=== PATIENT | male | born 1940 | race Caucasian/White ===

== ENCOUNTER 2016-12-03 05:06 | Observation (INO) | payer OTHER ==
[2016-12-03] VITALS (8 sets, daily range): BP systolic 146–183; BP diastolic 77–91; PULSE 82–100; RESP 15–18; TEMP 97.7–98.4; O2SAT 96–97
[~2016-12-03] VITALS: Ht 180.3 cm; Wt 108.0 kg
[~2016-12-03 05:06] MED LIST: CEFU1TAB43 PO; DICL50 PO; HYDR-2768 PO; HYDR-3533 PO; LANSO15 PO/TUBE; LISI-360 PO; LOTR10CA PO; METHO500 PO
--- NOTE | 2016-12-03 05:20 | PD ---
HPI Chief Complaint: chest pain Time Seen by Provider: 05:16 Travel History International Travel<30 days: No Contact w/Intl Traveler<30days: No Traveled to known affect area: No History of Present Illness HPI 76-year-old male presents to the emergency department by private transportation the care of her spouse for evaluation of chest pain. Patient states just prior to arrival to the emergency department he awakened and noticed left-sided chest discomfort and some mild diaphoresis of the forehead. No shortness of breath no nausea no vomiting no referred neck shoulder or back or arm pain. No abdominal pain. Patient has history of hypertension but denies personal history of CAD, dyslipidemia, diabetes, or tobaccoism. Patient states discomfort at home was 8/10 in intensity currently discomfort is 0/10 intensity. Patient recently traveled to [place] by car 3 weeks ago but denies any pleuritic chest pain shortness of breath or lower extremity pain or swelling. Patient does not report any fever chills cough congestion or other recent febrile or respiratory illness. Patient does not report any abdominal pain. Patient is unable to identify exacerbating or alleviating factors. PFSH Past Medical History Arthritis: Yes GERD: Yes Hypertension: Yes Social History Alcohol Use: Yes ("whole bunch") Tobacco Use: No (quit 40 years ago) Substance Use: No Allergies-Medications (Allergen,Severity, Reaction): Coded Allergies: No Known Allergies (Unverified , 08/10/15) Reported Meds & Prescriptions Reported Meds & Active Scripts Active Reported Hydrochlorothiazide 25 Mg Tab 25 Mg PO DAILY Lisinopril 10 Mg Tab 10 Mg PO DAILY Prevacid (Lansoprazole) 30 Mg Capdr 30 Mg PO DAILY Amlodipine (Amlodipine Besylate) 10 Mg Tab 10 Mg PO DAILY Physical Exam Narrative GENERAL: Well-developed well-nourished male distress no respiratory distress SKIN: Warm and dry. HEAD: Normocephalic. EYES: No scleral icterus. No injection or drainage. NECK: Supple, trachea midline. No JVD or lymphadenopathy. CARDIOVASCULAR: Regular rate and rhythm without murmurs, gallops, or rubs. RESPIRATORY: Breath sounds equal bilaterally. No accessory muscle use. GASTROINTESTINAL: Abdomen soft, non-tender, nondistended. MUSCULOSKELETAL: No cyanosis, or edema. No lower leg edema and tenderness Homans sign or cording. Bilateral radial and dorsalis pedis pulses 2+ to palpation. BACK: Nontender without obvious deformity. No CVA tenderness. Data Data Last Documented VS Vital Signs Date Time Temp Pulse Resp B/P Pulse Ox O2 Delivery O2 Flow Rate FiO2 12/03/16 05:34 85 16 146/77 97 Room Air 12/03/16 05:16 98.4 Orders Electrocardiogram (12/03/16 05:16) Basic Metabolic Panel (Bmp) (12/03/16 05:16) B-Type Natriuretic Peptide (12/03/16 05:16) Ckmb (Isoenzyme) Profile (12/03/16 05:16) Complete Blood Count With Diff (12/03/16 05:16) Magnesium (Mg) (12/03/16 05:16) Prothrombin Time / Inr (Pt) (12/03/16 05:16) Act Partial Throm Time (Ptt) (12/03/16 05:16) Troponin I (12/03/16 05:16) Chest, Single Ap (12/03/16 05:16) Ecg Monitoring (12/03/16 05:16) Bilateral Bp Monitoring (12/03/16 05:16) Iv Access Insert/Monitor (12/03/16 05:16) Oximetry (12/03/16 05:16) Oxygen Administration (12/03/16 05:16) Aspirin Chew (Aspirin Chew) (12/03/16 05:30) Sodium Chloride 0.9% Flush (Ns Flush) (12/03/16 05:30) Place In Observation (12/03/16 06:22) Activity Bed Rest With Brp (12/03/16 06:22) Vital Signs (Adult) Q4H (12/03/16 06:22) Cardiac Rhythm .As Directed (12/03/16 06:22) Notify Dr: Other .PRN (12/03/16 06:22) Notify Dr. Parameters (12/03/16 06:22) Resp Oxygen Nasal Cannula (12/03/16 ) Ckmb (Isoenzyme) Profile (12/03/16 08:30) Ckmb (Isoenzyme) Profile (12/03/16 11:30) Troponin I (12/03/16 08:30) Troponin I (12/03/16 11:30) Electrocardiogram (12/03/16 08:30) Electrocardiogram (12/03/16 11:30) ^ Obtain (12/03/16 06:22) Sodium Chloride 0.9% Flush (Ns Flush) (12/03/16 06:30) Sodium Chloride 0.9% Flush (Ns Flush) (12/03/16 09:00) Steeler / Telemetry RACHEL.Q8H (12/03/16 06:22) Labs Laboratory Tests Test 12/03/16 05:10 White Blood Count 6.2 TH/MM3 Red Blood Count 4.05 MIL/MM3 Hemoglobin 13.0 GM/DL Hematocrit 38.3 % Mean Corpuscular Volume 94.5 FL Mean Corpuscular Hemoglobin 32.1 PG Mean Corpuscular Hemoglobin 34.0 % Concent Red Cell Distribution Width 12.3 % Platelet Count 219 TH/MM3 Mean Platelet Volume 7.8 FL Neutrophils (%) (Auto) 47.4 % Lymphocytes (%) (Auto) 33.5 % Monocytes (%) (Auto) 8.7 % Eosinophils (%) (Auto) 9.5 % Basophils (%) (Auto) 0.9 % Neutrophils # (Auto) 2.9 TH/MM3 Lymphocytes # (Auto) 2.1 TH/MM3 Monocytes # (Auto) 0.5 TH/MM3 Eosinophils # (Auto) 0.6 TH/MM3 Basophils # (Auto) 0.1 TH/MM3 CBC Comment DIFF FINAL Differential Comment Prothrombin Time 10.3 SEC Prothromb Time International 0.9 RATIO Ratio Activated Partial 26.8 SEC Thromboplast Time Sodium Level 139 MEQ/L Potassium Level 3.9 MEQ/L Chloride Level 103 MEQ/L Carbon Dioxide Level 28.7 MEQ/L Anion Gap 7 MEQ/L Blood Urea Nitrogen 30 MG/DL Creatinine 1.70 MG/DL Estimat Glomerular Filtration 39 ML/MIN Rate Random Glucose 92 MG/DL Calcium Level 8.9 MG/DL Magnesium Level 1.5 MG/DL Total Creatine Kinase 80 U/L Troponin I LESS THAN 0.02 NG/ML B-Type Natriuretic Peptide 106 PG/ML MDM Medical Decision Making Medical Screen Exam Complete: Yes Emergency Medical Condition: Yes Medical Record Reviewed: Yes Interpretation(s) EKG: Normal sinus rhythm no acute ST elevation or injury pattern change noted Troponin I less than 0.02, not elevated; BNP 106 minimally elevated; CK total 80 , not elevated Last Impressions Chest X-Ray 12/03/16 0516 Signed Impressions: Service Date/Time: November 05:27 - CONCLUSION: Bibasilar subsegmental atelectasis. Pradip Lang MD CBC & BMP Diagram 12/03/16 05:10 Vital Signs Date Time Temp Pulse Resp B/P Pulse Ox O2 Delivery O2 Flow Rate FiO2 12/03/16 05:34 85 16 146/77 97 Room Air 12/03/16 05:22 100 16 183/86 96 Room Air 12/03/16 05:22 100 16 96 Room Air 12/03/16 05:16 98.4 87 16 183/86 Differential Diagnosis Chest pain, ACS, DC, musculoskeletal pain, PE, aortic dissection Narrative Course Patient placed on cardiac technologist IV access obtained specimens collected and sent for resulting patient administered aspirin; upon arrival and currently patient is 0/10 intensity for discomfort; EKG performed reveals no acute ST elevation or injury pattern change or ectopy Patient resting comfortably waiting for lab results Critical enzymes are found to be in normal range Patient is aware that plan is to admit for chest pain center protocol as an observation stay for serial cardiac enzymes and EKGs and possible stress test. Patient is agreeable to observation admission. Patient's case discussed with Dr Gonzales Physician Communication Physician Communication discussed with Dr gonzales Diagnosis Primary Impression: Chest pain Qualified Code: R07.2 - Precordial pain Admitting Information Admitting Physician Requests: Observation Leeann Castro MD Dec 03, 2016 05:20
[2016-12-03 05:29] LABS: AUTOMATED NEUTROPHIL # 2.9 TH/MM3 (1.8-7.7); BASOPHIL # 0.1 TH/MM3 (0-0.2); BASOPHIL % 0.9 % (0.0-2.0); EOSINOPHIL # 0.6 TH/MM3 (0-0.4); EOSINOPHIL % 9.5 % (0.0-4.0); HEMATOCRIT 38.3 % (39.0-51.0); HEMO FLAGS DIFF FINAL; LYMPH % 33.5 % (9.0-44.0); LYMPHOCYTE # 2.1 TH/MM3 (1.0-4.8); MEAN CELL VOLUME 94.5 FL (80.0-100.0); MEAN CORPUSCULAR HEMOGLOBIN 32.1 PG (27.0-34.0); MONO % 8.7 % (0.0-8.0); NEUT % 47.4 % (16.0-70.0); PLATELET COUNT 219 TH/MM3 (150-450); RED BLOOD COUNT 4.05 MIL/MM3 (4.50-5.90); RED CELL DISTRIBUTION WIDTH 12.3 % (11.6-17.2); WHITE BLOOD COUNT 6.2 TH/MM3 (4.0-11.0)
[2016-12-03] MEDS ORDERED: ASPIRIN 81 MG CHEW TAB PO ONE (05:30)
[2016-12-03] MEDS ORDERED: SODIUM CHLORIDE 0.9% FLUSH 10 ML FLUSH IVF PRN ×2 (05:30→06:30)
--- NOTE | 2016-12-03 05:36 | RADRPT ---
EXAM DATE/TIME: 12/03/2016 05:27 [facility] COMPARISON: No previous studies available for comparison. INDICATIONS : Left sided chest pain for 24 hours MEDICAL HISTORY : None. SURGICAL HISTORY : None. ENCOUNTER: Initial ACUITY: 1 day PAIN SCORE: 5/10 LOCATION: Left chest FINDINGS: A single view of the chest demonstrates bibasilar subsegmental atelectasis. Heart mildly enlarged. Th e cardiomediastinal contours are unremarkable. Osseous structures are intact. CONCLUSION: Bibasilar subsegmental atelectasis. Pradip Lang MD on December 03, 2016 at 5:34 Board Certified Radiologist. This report was verified electronically.
[2016-12-03 05:37] LABS: CHLORIDE 103 MEQ/L (98-107); POTASSIUM 3.9 MEQ/L (3.5-5.1); SODIUM (NA) 139 MEQ/L (136-145)
[2016-12-03 05:40] LABS: ANION GAP 7 MEQ/L (5-15); BICARBONATE 28.7 MEQ/L (21.0-32.0); BLOOD UREA NITROGEN 30 MG/DL (7-18); MAGNESIUM 1.5 MG/DL (1.5-2.5)
[2016-12-03 05:41] LABS: APTT (PATIENT) 26.8 SEC (24.3-30.1); INTERNATIONAL NORMALIZED RATIO 0.9 RATIO; PROTHROMBIN TIME - PATIENT 10.3 SEC (9.8-11.6)
[2016-12-03 05:43] LABS: GLOMERULAR FILTRATION RATE 39 ML/MIN (>89)
[2016-12-03] MEDS ORDERED: LISI10TA3 PO (05:46)
[2016-12-03] MEDS ORDERED: PREV30CA11 PO (05:46)
[2016-12-03] MEDS ORDERED: HYDR25TA5 PO (05:46)
[2016-12-03] MEDS ORDERED: AMLO10TA2 PO (05:46)
[2016-12-03 05:51] LABS: CREATINE KINASE 80 U/L (39-308)
[2016-12-03] MEDS ORDERED: SODIUM CHLORIDE 0.9% FLUSH 10 ML FLUSH IV FLUSH PRN (06:30)
[2016-12-03 08:56] LABS: CREATINE KINASE 71 U/L (39-308)
[2016-12-03] MEDS ORDERED: SODIUM CHLORIDE 0.9% FLUSH 10 ML FLUSH IV FLUSH SCH (09:00)
[2016-12-03] MEDS ORDERED: SODIUM CHLORIDE 0.9% FLUSH 10 ML FLUSH SCH (09:00)
--- NOTE | 2016-12-03 09:21 | HHI.HP ---
[facility] Jenaro Gilbert Admission Diagnosis chest pain Diagnoses: (1) Chest pain Diagnosis: Principal (2) Hypertension Diagnosis: Secondary (3) GERD (gastroesophageal reflux disease) Diagnosis: Secondary Chief Complaint: Chest pain Travel History International Travel<30 Days: No Contact w/Intl Traveler <30 Da: No Traveled to Known Affected Are: No History of Present Illness Written by Checo Santoyo, acting as scribe for Dr. España on 12/03/16 at 10: 38. This note was transcribed by scribe Checo LUNA. I, Dr. Catrachita España personally performed the history, physical exam, and medical decision making; and confirmed the accuracy of the information in the transcribed note. Authenticated by Dr. Catrachita España on 12/03/16 at 10:38. 76 year-old male with known history of hypertension, gastroesophageal reflux, arthritis who presented to the hospital because of chest discomfort. Patient indicates that he is been experiencing intermittent chest discomfort over the last week. He states that is located on the left side of his chest without any radiation to neck, back, shoulder, arm. Indicates that the pain can happen any time despite if he is exerting himself or not. He denies any pain when he is lying down or sleeping. There has been no associated nausea, vomiting, shortness of breath, dyspnea. Since the pain has been going on over a week he decided to come to the hospital for evaluation. Patient was given aspirin emergency department. He indicates that he had a stress test done 12 years ago prior to moving to [place] and everything was normal then. Is recommended by ER physician that the patient be observed in the chest pain center for further evaluation and management. Review of Systems Constitutional: COMPLAINS OF: Diaphoretic episodes, DENIES: Fatigue, Fever, Weight gain, Weight loss, Chills, Dizziness, Change in appetite, Night Sweats Eyes: DENIES: Blurred vision, Diplopia, Eye inflammation, Eye pain, Vision loss , Double Vision Ears, nose, mouth, throat: DENIES: Hearing loss, Nasal discharge, Throat pain, Ear Pain, Running Nose, Sinus Pain Respiratory: DENIES: Apneas, Cough, Snoring, Wheezing, Hemoptysis, Sputum production, Shortness of breath Cardiovascular: COMPLAINS OF: Chest pain, Lower Extremity Edema, DENIES: Palpitations, Syncope, Dyspnea on Exertion, PND, Orthopnea, Claudication Gastrointestinal: DENIES: Abdominal pain, Black stools, Bloody stools, Constipation, Diarrhea, Nausea, Vomiting, Difficulty Swallowing, Anorexia Neurologic: DENIES: Abnormal gait, Headache, Localized weakness, Paresthesias, Seizures, Speech Problems, Tremor, Poor Balance Past Family Social History Past Medical History Hypertension Gastroesophageal reflux Past Surgical History Patient denies any previous surgeries Reported Medications Reported Meds & Active Scripts Active Reported Hydrochlorothiazide 25 Mg Tab 25 Mg PO DAILY Lisinopril 10 Mg Tab 10 Mg PO DAILY Prevacid (Lansoprazole) 30 Mg Capdr 30 Mg PO DAILY Amlodipine (Amlodipine Besylate) 10 Mg Tab 10 Mg PO DAILY Allergies: Coded Allergies: No Known Allergies (Unverified , 08/10/15) Family History Reviewed and significant for father from heart attack in his 70s. Social History Patient quit smoking 50 years ago, prior to that he smoked approximately one pack of cigarettes every 2 weeks for 10 years. He does drink alcohol approximately one shot of Cecilio Beam and a beer a day. Denies any illicit drug Physical Exam Vital Signs Vital Signs Date Time Temp Pulse Resp B/P Pulse Ox O2 Delivery O2 Flow Rate FiO2 12/03/16 08:53 97.7 84 15 163/91 97 12/03/16 07:10 97 Room Air 12/03/16 07:10 18 97 Room Air 12/03/16 07:10 82 18 163/86 97 Room Air 12/03/16 06:39 82 16 153/83 97 Room Air 12/03/16 06:28 97 21 12/03/16 05:34 85 16 146/77 97 Room Air 12/03/16 05:22 100 16 183/86 96 Room Air 12/03/16 05:22 100 16 96 Room Air 12/03/16 05:16 98.4 87 16 183/86 Physical Exam GENERAL: Well-developed, well-nourished, in no acute distress. alert and orientated HEENT: Head is normocephalic without any lesions or masses noted. Facial features are symmetric. Eyes: Pupils equal round reactive to light. Extraocular muscles are intact. Conjunctivae were clear. Oropharyngeal: Pharynx without any erythema edema. Tongue is midline without deviation. Buccal mucosa is moist without any masses or lesions NECK: Supple without any masses. Trachea midline no deviation. No JVD, no bruits are appreciated CARDIAC: Regular rhythm, regular rate. S1/S2 are heard. No murmurs gallops or rubs. LUNGS: Clear to auscultation bilaterally. No wheeze, rhonchi or rales. No use of accessory muscles on inspiration or expiration. ABDOMEN: Soft, nontender. Nondistended. Bowel sounds heard in all 4 quadrants. No organomegaly or masses. Negative rebound, negative guarding EXTREMITIES: No edema, pulses are equal bilaterally. No cyanosis or clubbing NEUROLOGY: Mood and affect appear appropriate. Cranial nerves II through XII grossly intact. Muscle strength 5/5 in upper and lower extremities bilaterally. Deep tendon reflexes are 2+ in upper and lower extremities bilaterally. Laboratory Laboratory Tests Test 12/03/16 12/03/16 05:10 08:00 White Blood Count 6.2 Red Blood Count 4.05 Hemoglobin 13.0 Hematocrit 38.3 Mean Corpuscular Volume 94.5 Mean Corpuscular Hemoglobin 32.1 Mean Corpuscular Hemoglobin 34.0 Concent Red Cell Distribution Width 12.3 Platelet Count 219 Mean Platelet Volume 7.8 Neutrophils (%) (Auto) 47.4 Lymphocytes (%) (Auto) 33.5 Monocytes (%) (Auto) 8.7 Eosinophils (%) (Auto) 9.5 Basophils (%) (Auto) 0.9 Neutrophils # (Auto) 2.9 Lymphocytes # (Auto) 2.1 Monocytes # (Auto) 0.5 Eosinophils # (Auto) 0.6 Basophils # (Auto) 0.1 CBC Comment DIFF FINAL Differential Comment Prothrombin Time 10.3 Prothromb Time International 0.9 Ratio Activated Partial 26.8 Thromboplast Time Sodium Level 139 Potassium Level 3.9 Chloride Level 103 Carbon Dioxide Level 28.7 Anion Gap 7 Blood Urea Nitrogen 30 Creatinine 1.70 Estimat Glomerular Filtration 39 Rate Random Glucose 92 Calcium Level 8.9 Magnesium Level 1.5 Total Creatine Kinase 80 71 Troponin I LESS THAN 0.02 LESS THAN 0.02 B-Type Natriuretic Peptide 106 Result Diagram: 12/03/16 0510 12/03/16 0510 Imaging Last Impressions Chest X-Ray 12/03/16 0516 Signed Impressions: Service Date/Time: November 05:27 - CONCLUSION: Bibasilar subsegmental atelectasis. Pradip Lang MD Assessment and Plan Assessment and Plan 76-year-old male who presented to the hospital for chest pain Chest pain, atypical Patient with increased risk factors to include age, hypertension We'll continue to rule patient out for acute coronary event with serial cardiac enzymes and serial EKGs If patient has been ruled out will pursue stress test rule out any underlying ischemia Continue aspirin, nitroglycerin, [place], morphine as needed for pain Hypertension Continue home medications Clonidine as needed Azotemia, unknown if acute on chronic versus chronic Previous laboratory studies 12 years ago indicate chronic kidney disease stage II We'll monitor BMP Gastroesophageal reflux Continue proton pump inhibitor DVT prevention Low risk, early ambulation Discharge disposition Discharge home in stable condition if stress test is negative Activity: Ad juan ramon. Diet: Healthy heart diet Medications per medication reconciliation Follow-up with primary medical doctor in one week Problem Qualifiers (1) Chest pain: Qualified Code: R07.2 - Precordial pain (2) Hypertension: Qualified Code: I15.9 - Secondary hypertension (3) GERD (gastroesophageal reflux disease): Qualified Code: K21.9 - Gastroesophageal reflux disease, esophagitis presence not specified Checo Santoyo Dec 03, 2016 09:20 Catrachita España MD Dec 03, 2016 10:48
[2016-12-03] MEDS ORDERED: LISINOPRIL 10 MG TAB PO SCH (09:30)
[2016-12-03] MEDS ORDERED: ONDANSETRON HCL 4 MG/2 ML VIAL IV PRN (09:30)
[2016-12-03] MEDS ORDERED: ACETAMINOPHEN 500 MG CPLT PO PRN (09:30)
[2016-12-03] MEDS ORDERED: NITROGLYCERIN 0.4 MG SL 25 TABS/BTL SL PRN (09:30)
[2016-12-03] MEDS ORDERED: HYDROCHLOROTHIAZIDE 25 MG TAB PO SCH (09:30)
[2016-12-03] MEDS ORDERED: ACETAMINOPHEN/HYDROcodone 325 MG/7.5 MG TAB PO PRN (09:30)
[2016-12-03] MEDS ORDERED: MORPHINE SULFATE 8 MG/ML INJ IV PUSH PRN (10:00)
[2016-12-03] MEDS ORDERED: PANTOPRAZOLE SOD 40 MG DELAYED RELEASE TAB PO SCH (10:00)
[2016-12-03 11:00] LABS: CHLORIDE 102 MEQ/L (98-107); POTASSIUM 3.9 MEQ/L (3.5-5.1); SODIUM (NA) 139 MEQ/L (136-145)
[2016-12-03 11:07] LABS: ANION GAP 7 MEQ/L (5-15); BICARBONATE 29.9 MEQ/L (21.0-32.0)
[2016-12-03 11:08] LABS: BLOOD UREA NITROGEN 28 MG/DL (7-18)
[2016-12-03 11:11] LABS: GLOMERULAR FILTRATION RATE 45 ML/MIN (>89)
[2016-12-03 11:16] LABS: CREATINE KINASE 86 U/L (39-308)
[2016-12-03] MEDS ORDERED: REGADENOSON INJ 0.4 MG/5 ML SYR IV ONE (13:03)
--- NOTE | 2016-12-03 14:38 | RADRPT ---
EXAM DATE/TIME: 12/03/2016 12:57 [facility] COMPARISON: CHEST SINGLE AP, December 03, 2016, 5:27. INDICATIONS : Left sided chest pain for one week. Angina. DOSE: 34.7 mCi Tc99m Myoview at stress. 10.8 mCi Tc99m Myoview at rest. 0.4 mg Lexiscan STRESS SYMPTOMS: None noted. EJECTION FRACTION: > 70% MEDICAL HISTORY : Gastroesophageal reflux disease. Hypertension. SURGICAL HISTORY : None. ENCOUNTER: Initial ACUITY: 1 week PAIN SCALE: 5/10 LOCATION: Left chest TECHNIQUE: The patient underwent pharmacologic stress with infusion of prescribed dose. Continuous ECG tracing was monitored during stress. Gated SPECT imaging was performed after stress and conventional SPECT i maging was performed at rest. The examination was performed on a SPECT/CT scanner, both attenuation and non-corrected datasets were reviewed. FINDINGS: DISTRIBUTION: The maximum perfused segment at stress is in the anteroseptal wall. PERFUSION STUDY: Non-attenuated corrected images demonstrate no fixed or reversible perfusion defect. There is the sug gestion of a small area of mild reversibility in the inferolateral wall near the base. However, this area appears normal on the non-attenuated corrected images suggesting this may represent attenuation artifact. GATED STUDY: There is intact wall motion and thickening without hypokinetic or dyskinetic segments. CONCLUSION: 1. No definite fixed or reversible perfusion defect is identified. The questioned abnormality on the attenuated corrected images at the inferolateral wall at the base likely represents artifact related to attenuated correction technique since it appears normal the non-attenuated corrected images. 2. Normal left ventricle wall motion with calculated ejection fraction greater than 70%. RISK CATEGORY: Low (<1% Annual Mortality Rate) Harlan Cedillo MD on December 03, 2016 at 14:31 Board Certified Radiologist. This report was verified electronically.
--- NOTE | 2016-12-03 14:40 | HHI.DCPOC ---
Discharge Care Plan Diagnosis: (1) Chest pain Goals to Promote Your Health * To prevent worsening of your condition and complications * To maintain your health at the optimal level Directions to Meet Your Goals Take your medications as prescribed Follow your dietary instruction Follow activity as directed Keep your appointments as scheduled Take your immunizations and boosters as scheduled If your symptoms worsen call your PCP, if no PCP go to Urgent Care Center or Emergency Room Smoking is Dangerous to Your Health. Avoid second hand smoke Call the 24-hour hour crisis hotline for domestic abuse at Checo Santoyo Dec 03, 2016 14:40
--- NOTE | 2016-12-03 18:14 | EKG ---
Date Performed: 12/03/2016 Time Performed: 10:28:27 PTAGE: 76 years EKG: Sinus rhythm NORMAL ECG PREVIOUS TRACING : 12/03/2016 08.04 Compared to prior tracing no significant change DOCTOR: Meg Valdez Interpretating Date/Time 12/03/2016 18:12:46
--- NOTE | 2016-12-03 18:14 | EKG ---
Date Performed: 12/03/2016 Time Performed: 05:12:05 PTAGE: 76 years EKG: Sinus rhythm NORMAL ECG PREVIOUS TRACING : 08/10/2015 07.37 Compared to prior tracing no significant change DOCTOR: Meg Valdez Interpretating Date/Time 12/03/2016 18:12:17
--- NOTE | 2016-12-03 18:14 | EKG ---
Date Performed: 12/03/2016 Time Performed: 08:04:19 PTAGE: 76 years EKG: Sinus rhythm WITH OCCASIONAL SUPRAVENTRICULAR PREMATURE COMPLEXES BORDERLINE ECG PREVIOUS TRACING : 12/03/2016 05.12 Compared to prior tracing no significant change DOCTOR: Meg Valdez Interpretating Date/Time 12/03/2016 18:12:32
[2016-12-04] MEDS ORDERED: ASPIRIN 325 MG TAB PO SCH (09:00)
--- NOTE | 2016-12-04 13:16 | TR ---
Date Performed: 12/03/2016 Time Performed: 13:17:55 DOCTOR: Jackson Alford DRUG LIST: CLINICAL HISTORY: ANGINA REASON FOR TEST: Angina REASON FOR ENDING: OBSERVATION: CONCLUSION: Lexiscan stress test was performed under standard four minute protocol. Radionuclid e was injected one minute prior to ending the test. No electrocardiographic abormalities were present to suggest ischemia. Nuclear imaging and interpretation are pending. COMMENTS:
== END 2016-12-03 16:54 | disposition home or self-care (01) ==
LOC: PHED 05:06 → PHEDA 06:24 → PH3B 08:20
PROVIDERS: ADMIT Hospitalist; ATTEND Hospitalist
DX: R07.89 Other chest pain (principal); I10 Essential (primary) hypertension; K21.9 Gastro-esophageal reflux disease without esophagitis; Z79.899 Other long term (current) drug therapy; Z87.891 Personal history of nicotine dependence; R79.89 Other specified abnormal findings of blood chemistry
CPT/HCPCS: 71010; 78452; 80048; 82550; 83735; 83880; 84484; 85025; 85610; 85730; 93005; 93017; 99285; A9502; G0378; J2785

== ENCOUNTER 2017-06-21 10:36 | Inpatient (IN) | payer MEDICARE, OTHER ==
[2017-06-21] MEDS ORDERED: SODIUM CHLORIDE 0.9% FLUSH 10 ML FLUSH IVF (11:00)
[2017-06-21] MEDS: DILTIAZEM HCL 25 MG/5 ML VIAL IV PUSH (11:12)
[2017-06-21] MEDS: SODIUM CHLORIDE 0.9% FLUSH 10 ML FLUSH IV FLUSH (11:12)
[2017-06-21] MEDS: DILTIAZEM INJ 125 MG in SODIUM CHLORIDE 0.9% INJ 100 ML IV (11:13)
[2017-06-21 11:18] LABS: AUTOMATED NEUTROPHIL # 3.7 TH/MM3 (1.8-7.7); BASOPHIL # 0.1 TH/MM3 (0-0.2); BASOPHIL % 0.9 % (0.0-2.0); EOSINOPHIL # 0.2 TH/MM3 (0-0.4); EOSINOPHIL % 3.7 % (0.0-4.0); HEMATOCRIT 40.5 % (39.0-51.0); HEMO FLAGS DIFF FINAL; HEMOGLOBIN 13.3 GM/DL (13.0-17.0); LYMPH % 30.5 % (9.0-44.0); MEAN CORPUSCULAR HEMOGLOBIN 31.5 PG (27.0-34.0); MEAN CORPUSCULAR HGB CONC 32.8 % (32.0-36.0); MEAN PLATELET VOLUME 7.9 FL (7.0-11.0); MONO % 10.3 % (0.0-8.0); MONOCYTE # 0.7 TH/MM3 (0-0.9); NEUT % 54.6 % (16.0-70.0); PLATELET COUNT 298 TH/MM3 (150-450); RED BLOOD COUNT 4.22 MIL/MM3 (4.50-5.90); RED CELL DISTRIBUTION WIDTH 12.2 % (11.6-17.2); WHITE BLOOD COUNT 6.7 TH/MM3 (4.0-11.0)
[2017-06-21 11:30] LABS: CHLORIDE 100 MEQ/L (98-107); SODIUM (NA) 136 MEQ/L (136-145)
[2017-06-21 11:31] LABS: APTT (PATIENT) 26.6 SEC (24.3-30.1)
[2017-06-21 11:33] LABS: CALCIUM 8.9 MG/DL (8.5-10.1)
[2017-06-21 11:34] LABS: ALBUMIN 3.9 GM/DL (3.4-5.0); ANION GAP 9 MEQ/L (5-15); BICARBONATE 26.6 MEQ/L (21.0-32.0); BLOOD UREA NITROGEN 23 MG/DL (7-18); GLUCOSE,RANDOM 97 MG/DL (74-106); MAGNESIUM 1.7 MG/DL (1.5-2.5)
[2017-06-21 11:37] LABS: ALT (GPT) 19 U/L (12-78); AST (GOT) 18 U/L (15-37); GLOMERULAR FILTRATION RATE 53 ML/MIN (>89)
[2017-06-21 11:38] LABS: TOTAL BILIRUBIN ADULT 0.5 MG/DL (0.2-1.0); TOTAL PROTEIN 7.3 GM/DL (6.4-8.2)
[2017-06-21 11:40] LABS: ALKALINE PHOSPHATASE 60 U/L (45-117)
[2017-06-21 11:42] LABS: B-TYPE NATRIURETIC PEPTIDE 336 PG/ML (0-100)
[2017-06-21 11:42] LABS: TROPONIN I LESS THAN 0.02 NG/ML (0.02-0.05)
[2017-06-21] MEDS ORDERED: PILL SPLITTER OTHER (12:15)
[2017-06-21] MEDS: METOPROLOL TARTRATE 25 MG TAB PO ×3 (12:18→22:13)
[2017-06-21] MEDS: ENOXAPARIN SODIUM 30 MG/0.3 ML SYRINGE SQ (15:25)
[2017-06-21] MEDS ORDERED: CHLORHEXIDINE GLUCONATE 2 % 1 PACK (2 CLOTHS)(extra cloths) TOPICAL (17:00)
[2017-06-21 18:45] LABS: TROPONIN I LESS THAN 0.02 NG/ML (0.02-0.05)
[2017-06-21] MEDS ORDERED: DILTIAZEM INJ 125 MG in SODIUM CHLORIDE 0.9% INJ 100 ML IV (19:45)
[2017-06-22 00:55] LABS: MRSA PCR SURVEILLANCE MRSA NOT DETECTED (NOT DETECT)
[2017-06-22] MEDS ORDERED: CHLORHEXIDINE GLUCONATE 2 % 1 PACK (2 CLOTHS)(taper/protocol) TOPICAL (04:00)
[2017-06-22] MEDS: METOPROLOL TARTRATE 25 MG TAB PO ×2 (05:46→11:33)
[2017-06-22] MEDS: HYDROCHLOROTHIAZIDE 25 MG TAB PO (09:32)
[2017-06-22] MEDS: PNEUMOCOCCAL POLYVALENT INJ 25 MCG/0.5 ML SYR IM (09:32)
[2017-06-22] MEDS: LISINOPRIL 20 MG TAB PO (09:33)
[2017-06-22] MEDS: PANTOPRAZOLE SOD 40 MG DELAYED RELEASE TAB PO (09:33)
== END 2017-06-22 12:55 | disposition home or self-care (01) | DRG 310 ==
LOC: PHED 10:36 → PHEDA 12:06 → PHICU 13:47
DX: I48.91 Unspecified atrial fibrillation (principal); I10 Essential (primary) hypertension; Z87.891 Personal history of nicotine dependence; Z72.89 Other problems related to lifestyle
CPT/HCPCS: 71045; 80053; 83735; 83880; 84484; 85025; 85610; 85730; 87641; 90471; 90732; 93005; 93306; 96365; 96375; 99285-25